=== PATIENT | female | born 1960 | race Caucasian/White ===

== ENCOUNTER 2017-02-04 19:52 | Emergency (ER) | payer MEDICAID ==
[2017-02-04 22:00] VITALS: BP 151/95
--- NOTE | 2017-02-06 09:51 | ER ---
DATE SEEN: 02/04/2017 TIME SEEN: The patient was seen at 2044. CHIEF COMPLAINT: Right chest pain. 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 On the bus, there was a large step between the last step of the bus and the ground. There was a hydraulic step that is usually in place, but it was not working. Consequently, she went from the bottom step to the ground. She knew she could manage on her own, but there were several others, who were very inebriated, and they were trying to help and they "were not_ any help", and she fell to the ground and struck her right chest. No neck injury. Has mild shortness of breath and pain with end inspiration. Mild right elbow discomfort. The pain is 10/10 in the chest. She is not taking any pain medicine. PAST MEDICAL HISTORY: Negative, except for allergic to Naproxen and metals. MEDICATIONS: She uses Valium occasionally, acetaminophen for arthritis, and hydrocodone 5/325 mg. ALLERGIES: Naproxen and metals. SERIOUS OTHER ILLNESSES: Negative. PHYSICAL EXAMINATION: VITAL SIGNS: Blood pressure 119/72, heart rate 71 and regular, respirations 14, oxygen saturation 97% on room air, temperature 36.5 degrees centigrade. GENERAL: Pleasant. markedly overweight woman with moderate distress in right chest. HEENT: PERRLA intact. Pharynx without abnormality. NECK: Without tenderness, bruits, cervical adenopathy, or thyromegaly. LUNGS: Clear to auscultation without rales, rhonchi, or wheezes. Chest wall, right chest ribs 8 through 11 mildly tender midclavicular line and lateral to the anterior axillary line. No crepitus or stepoff noted. No rales noted. HEART: S1, S2. No murmur. ABDOMEN: Soft. No guarding. No abdominal discomfort. No hepatosplenomegaly. Bowel sounds normal. No spinous process tenderness, thoracic or lumbar spine. DIAGNOSTIC STUDIES: X-ray does not reveal fracture of the ribs on rib detail. Chest x-ray is negative. No evidence for pneumothorax. ASSESSMENT: Chest wall contusion with right 6 through 10 costochondritis and subchondral joint pain. PLAN: Vicodin. The patient has Vicodin that she has at home for previous hip and knee surgeries. She is planning to have a carpal tunnel surgery in 3 days. Use incentive spirometer at least q.i.d. and as preferred. Follow up with doctor in a week. /[id number] STELLA/SERGIO
--- NOTE | 2017-02-06 11:10 | CR ---
INDICATION: Fall, right rib and chest pain. RIGHT RIBS WITH CHEST: CHEST: PA view of the chest 02/04/2017 was compared with 12/26/2015 and 2011, again revealing the heart to be normal in size and shape. The mediastinum was essentially unremarkable. Lateral pleural thickening on the right is again noted and only very minimally on the left, most likely on the basis of pleural fibrosis, having been present previously. An active infiltrate, effusion, contusion, or pneumothorax was not identified. Minimal dextroconcave scoliosis of the mid thoracic spine is noted. IMPRESSION: No acute process. RIGHT RIBS: Six views of the right ribs were obtained and revealed a marker overlying the lower right ribs. No displaced fracture site was identified. There is a calcific or bony density noted overlying those ribs, which may represent calcification in the cartilaginous portion of the ribcage. IMPRESSION: No displaced fracture site identified. Report was called to Sheela Elliott P.A.-C, at 0930 hours, 02/06/2017. SHERI
== END 2017-02-04 22:04 | disposition home or self-care (01) ==
LOC: FB.ED 19:52
DX: S20.211A Contusion of right front wall of thorax, initial encounter (principal); M94.0 Chondrocostal junction syndrome [Tietze]; Z88.8 Allergy status to other drugs, medicaments and biological substances; W19.XXXA Unspecified fall, initial encounter
CPT/HCPCS: 71101-RT; 99283

== ENCOUNTER 2018-05-13 11:57 | Emergency (ER) | payer MEDICAID ==
[2018-05-13] MEDS ORDERED: Albuterol/Ipratropium 3.0-0.5 MG/3 ML Neb Soln NEB ONE ×2 (12:00→14:20)
[2018-05-13] MEDS ORDERED: Albuterol/Ipratropium 3.0-0.5 MG/3 ML Neb Soln ONE ×2 (12:18→14:20)
[2018-05-13] MEDS ORDERED: predniSONE 20 MG Tab PO ONE (13:11)
[2018-05-13 15:02] VITALS: BP 157/69
--- NOTE | 2018-05-14 03:09 | EDM.PDOC ---
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: 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 (see below) Other Treatments CALCULATOR OPERATOR: inhaler Midsternal chest region Pain Score (Numeric/FACES): 5 - Related Data Allergies Allergy/AdvReac Type Severity Reaction Status Date / Time celecoxib [From Celebrex] Allergy Bronchospas Verified 05/13/18 12:05 ms cyclobenzaprine Allergy Rash Verified 05/13/18 12:05 [From Flexeril] fluticasone [From Flonase] Allergy Nose Bleeds Verified 05/13/18 12:05 naproxen Allergy Difficulty Verified 02/04/17 21:11 Breathing metals Allergy Rash Uncoded 02/04/17 21:11 Home Meds: Home Meds Acetaminophen [Tylenol Arthritis] 650 mg PO TID PRN 02/04/17 [History] Hydrocodone/Acetaminophen [Hydrocodon-Acetaminophen 5-325] 1 tab PO DAILY PRN [History] oxyCODONE HCl/Acetaminophen [Oxycodone-Acetaminophen 5-325] 1 each PO Q4H PRN # 16 tablet 02/05/17 [Rx] Albuterol [Ventolin HFA] 2 puff Q4H PRN 05/13/18 [History] Albuterol/Ipratropium [DuoNeb 3.0-0.5 MG/3 ML] 3 ml .XX ASDIRECTED PRN #1 box [Rx] Amoxicillin/Potassium Clav [Augmentin 875-125 Tablet] 1 each PO BID #20 tablet 05/13/18 [Rx] Ascorbic Acid [Vitamin C] 1,000 mg PO DAILY 05/13/18 [History] Cetirizine [ZyrTEC] 10 mg PO BEDTIME 05/13/18 [History] Cholecalciferol (Vitamin D3) [Vitamin D3] 1,000 units PO DAILY 05/13/18 [History ] predniSONE [Prednisone] 40 mg PO DAILY #5 tablet 05/13/18 [Rx] Past Medical History HEENT History: Reports: Impaired Vision Respiratory History: Reports: Asthma Gastrointestinal History: Reports: PUD Other Gastrointestinal History: duodenal ulcer 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: hysterectomy Musculoskeletal History: Reports: Arthritis, Back Pain, Chronic, Fracture, Osteoarthritis, Other (See Below) Other Musculoskeletal History: L wrist fx Endocrine/Metabolic History: Reports: Obesity/BMI 30+ - Infectious Disease History Infectious Disease History: Reports: Chicken Pox, Measles, Mumps - Past Surgical History GI Surgical History: Reports: Appendectomy, Colonoscopy, EGD Other GI Surgeries/Procedures: hemorroidectomy Neurological Surgical History: Reports: Lumbar Spine Musculoskeletal Surgical History: Reports: Arthroscopic Procedure, Carpal Tunnel , Hip Replacement, Knee Replacement, Shoulder Surgery, Other (See Below) Other Musculoskeletal Surgeries/Procedures:: R shoulder surg x 2, bilat knee surgery, bilat carpal tunnel surg, R hip surgery, L wrist scope Social & Family History - Family History Family Medical History: Noncontributory - Tobacco Use Smoking Status *Q: Current Every Day Smoker Years of Tobacco use: 40 Packs/Tins Daily: 0.5 - Caffeine Use Caffeine Use: Reports: Coffee, Soda - Recreational Drug Use Recreational Drug Use: No ED ROS GENERAL - Review of Systems Review Of Systems: See Below Constitutional: Reports: No Symptoms HEENT: Reports: No Symptoms Respiratory: Reports: Shortness of Breath, Cough Cardiovascular: Reports: No Symptoms Endocrine: Reports: No Symptoms GI/Abdominal: Reports: No Symptoms : Reports: No Symptoms Musculoskeletal: Reports: No Symptoms Skin: Reports: No Symptoms Neurological: Reports: No Symptoms Psychiatric: Reports: No Symptoms Hematologic/Lymphatic: Reports: No Symptoms Immunologic: Reports: No Symptoms ED EXAM, GENERAL - Physical Exam Exam: See Below Free Text/Narrative:: 0BESE WOMAN WHO DOES NOT APPEAR TO BE IN MUCH DISTRESS INSPITE OF THE SOB SX'S SHE STATES SHE IS HAVING NO RETRACTIONS NO S DYSPNEA Exam Limited By: No Limitations General Appearance: Alert, Mild Distress Eye Exam: Bilateral Eye: Normal Inspection Ears: Normal External Exam, Normal Canal, Hearing Grossly Normal, Normal TMs Nose: Normal Inspection, Normal Mucosa Throat/Mouth: Normal Inspection, Normal Lips, Normal Teeth, Normal Gums, Normal Oropharynx, Normal Voice, No Airway Compromise Head: Atraumatic Neck: Normal Inspection Respiratory/Chest: No Respiratory Distress, Lungs Clear, Normal Breath Sounds, No Accessory Muscle Use, Chest Non-Tender, Other (SLIGHT NOTED INCREASED BREATH SOUND BUT INTIALLY I HEARD NO WHEEZESBUT HTE NURSE BONNIE RN NOTED WHEEZES BUT SHE WOULD HAVE INTERMITTENLY VARIABLE PRESENT WHEEZES, THE WHEEZES WOULD RELENT AFTER EACH DUO NEB) Cardiovascular: Normal Peripheral Pulses Peripheral Pulses: 1+: Radial (L), Radial (R) GI/Abdominal: Normal Bowel Sounds, Soft, Non-Tender, No Organomegaly, No Distention, No Abnormal Bruit Back Exam: Normal Inspection Extremities: Normal Inspection, No Pedal Edema Neurological: Alert, Oriented, CN II-XII Intact, Normal Cognition, Normal Gait, Normal Reflexes, No Motor/Sensory Deficits Psychiatric: Normal Affect Skin Exam: Warm, Dry, Intact, Normal Color Course - Vital Signs Last Recorded V/S: Last Vital Signs Temp 36.7 C 05/13/18 13:11 Pulse 72 05/13/18 15:01 Resp 20 05/13/18 15:01 BP 157/69 H 05/13/18 15:01 Pulse Ox 97 05/13/18 15:01 - Orders/Labs/Meds Orders: Active Orders 24 hr Category Date Time Status RT Aerosol Therapy [RC] ASDIRECTED Care 05/13/18 12:30 Active CXR [Chest 2V] [CR] Stat Exams 05/13/18 12:27 Taken Meds: Medications Discontinued Medications Generic Name Dose Route Start Last Admin Trade Name Ovidio PRN Reason Stop Dose Admin Albuterol/Ipratropium Confirm 05/13/18 12:18 05/13/18 12:23 Duoneb 3.0-0.5 Mg/3 Ml Administered 05/13/18 12:19 3 ml Dose Administration 3 ml .ROUTE .STK-MED ONE Albuterol/Ipratropium 3 ml 05/13/18 14:20 05/13/18 14:24 Duoneb 3.0-0.5 Mg/3 Ml NEB 05/13/18 14:21 3 ml ONETIME ONE Administration Albuterol/Ipratropium Confirm 05/13/18 14:20 05/13/18 14:24 Duoneb 3.0-0.5 Mg/3 Ml Administered 05/13/18 14:21 Not Given Dose 3 ml .ROUTE .STK-MED ONE Prednisone 40 mg 05/13/18 13:11 05/13/18 13:17 Prednisone PO 05/13/18 13:12 40 mg ONETIME ONE Administration Prednisone 40 mg 05/14/18 08:00 Prednisone PO WITHBREAKFAST KRISTY Departure - Departure Time of Disposition: 14:50 Disposition: Home, Self-Care 01 Clinical Impression: Acute asthmatic bronchitis Asthma Qualifiers: Asthma severity: mild Asthma persistence: intermittent Asthma complication type : with acute exacerbation Qualified Code(s): J45.21 - Mild intermittent asthma with (acute) exacerbation Obesity Qualifiers: Obesity type: with alveolar hypoventilation Obesity classification: adult class 3 (BMI >= 40) Serious obesity comorbidity presence: without serious comorbidity Body mass index: BMI 40.0-44.9 Qualified Code(s): E66.2 - Morbid ( severe) obesity with alveolar hypoventilation; Z68.41 - Body mass index (BMI) 40.0-44.9, adult Reactive airway disease with acute exacerbation Qualifiers: Asthma severity: mild Asthma persistence: intermittent Qualified Code(s): J45.21 - Mild intermittent asthma with (acute) exacerbation - Discharge Information *PRESCRIPTION DRUG MONITORING PROGRAM REVIEWED*: No *COPY OF PRESCRIPTION DRUG MONITORING REPORT IN PATIENT OMAR: No Prescriptions: Albuterol/Ipratropium [DuoNeb 3.0-0.5 MG/3 ML] 3 ml .XX ASDIRECTED PRN #1 box PRN Reason: Shortness Of Breath Amoxicillin/Potassium Clav [Augmentin 875-125 Tablet] 1 each PO BID #20 tablet predniSONE [Prednisone] 40 mg PO DAILY #5 tablet Instructions: Acute Bronchitis, Adult, [id number], Albuterol; Ipratropium solution for inhalation, Prednisone tablets Referrals: Hamilton Mohamud MD [Primary Care Provider] - Forms: ED Department Discharge Additional Instructions: AUGMENTIN 875 I TAB TWICE A DAY FOR 7 DAYS PREDNISONE 40 MG DUMONT FOR 5 DAYS DUO NEB EVERY 2-4 HOURS NEEDED FOR SHORTNESS OF BREATH AND ASTHMA SYMPTOMS DISCONTINUE SMOKING FOLLOW UP WITH YOUR MD 1 WEEK EARLIER IF WORSE - My Orders Last 24 Hours: My Active Orders 05/13/18 12:27 CXR [Chest 2V] [CR] Stat 05/13/18 12:30 RT Aerosol Therapy [RC] ASDIRECTED - Assessment/Plan Last 24 Hours: My Active Orders 05/13/18 12:27 CXR [Chest 2V] [CR] Stat 05/13/18 12:30 RT Aerosol Therapy [RC] ASDIRECTED
[2018-05-14] MEDS ORDERED: predniSONE 20 MG Tab PO SCH (08:00)
--- NOTE | 2018-05-14 13:18 | CR ---
INDICATION: Cough for 2-3 days, COPD exacerbation, smoker of 1/2 pack per day since age 12. CHEST: PA and lateral views of the chest were obtained 05/13/2018 and were compared with 02/04/2017 and 12/26/2015, again revealing evidence of exogenous obesity. Prominent AP diameter, slightly flattened diaphragm leaves, and mild hyperaeration all suggest the possibility of COPD and should be correlated clinically. A definite active infiltrate or effusion was not identified. Heart, mediastinum, and bony thorax were unremarkable. IMPRESSION: 1. No definite acute process. 2. Probable COPD. 3. Exogenous obesity. MTDD
== END 2018-05-13 15:10 | disposition home or self-care (01) ==
LOC: FB.ED 11:57
DX: J45.21 Mild intermittent asthma with (acute) exacerbation (principal); E66.2 Morbid (severe) obesity with alveolar hypoventilation; F17.210 Nicotine dependence, cigarettes, uncomplicated; Z68.41 Body mass index [BMI] 40.0-44.9, adult; Z88.1 Allergy status to other antibiotic agents; Z88.5 Allergy status to narcotic agent; Z79.899 Other long term (current) drug therapy
CPT/HCPCS: 71046; 94640; 99284; A9270; J7620

== ENCOUNTER 2023-03-07 22:17 | Emergency (ER) | payer BC, MEDICARE ==
[2023-03-07] MEDS ORDERED: HYDROmorphone 2 MG/ML SDV IVPUSH STA (22:37)
[2023-03-07 22:43] LABS: BASOPHILS ABSOLUTE AUTO 0.1 x10-3/uL (0.0-0.1); BASOPHILS PERCENT AUTO 0.8 % (0.2-1.5); EOSINOPHILS ABSOLUTE AUTO 0.3 x10-3/uL (0.0-0.8); EOSINOPHILS PERCENT AUTO 4.9 % (0.6-8.1); HEMATOCRIT 41.2 % (34.2-48.2); HEMOGLOBIN 14.1 g/dL (11.4-15.5); LYMPHOCYTES ABSOLUTE AUTO 2.4 x10-3/uL (1.0-4.4); MEAN CORPUSCULAR HEMOGLOBIN 31.7 pg (23.9-33.9); MEAN CORPUSCULAR HGB CONC 34.1 g/dL (31.9-34.8); MEAN CORPUSCULAR VOLUME 92.8 fL (76.7-100.5); MEAN PLATELET VOLUME 8.5 fL (7.1-12.4); MONOCYTES ABSOLUTE AUTO 0.7 x10-3/uL (0.3-1.0); MONOCYTES PERCENT AUTO 9.7 % (4.4-15.7); NEUTROPHILS ABSOLUTE AUTO 3.5 x10-3/uL (1.5-6.3); NEUTROPHILS PERCENT AUTO 50.6 % (30.8-76.2); PLATELET COUNT,PLT 243 x10(3)uL (151-488); RED BLOOD CELL COUNT 4.44 x10(6)uL (3.60-5.20); RED CELL DISTRIBUTION WIDTH 13.3 % (12.3-16.5)
[2023-03-07 22:47] LABS: BLOOD UREA NITROGEN,BUN 20 mg/dL (7-18); CALCIUM 8.9 mg/dL (8.6-10.2); CARBON DIOXIDE,CO2 26 mmol/L (21-32); CHLORIDE,CL 105 mmol/L (100-110); CREATININE 0.8 mg/dL (0.55-1.02); EST CRCL DRUG DOSING (CG) 60.31 mL/min; ESTIMATED GFR 83 mL/min (>60); GLUCOSE RANDOM 98 mg/dL (80-116); POTASSIUM,K 3.7 mmol/L (3.5-5.3); SODIUM,NA 142 mmol/L (135-145)
[2023-03-07 22:53] LABS: A/G RATIO 1.2; ALANINE AMINOTRANSFERASE,ALT 36 U/L (12-36); ALBUMIN 3.6 g/dL (3.2-4.6); ALKALINE PHOSPHATASE 74 IU/L (56-112); ASPARTATE AMNIOTRANSFERASE,AST 24 IU/L (5-25); BILIRUBIN TOTAL 0.3 mg/dL (0.1-1.3); PROTEIN TOTAL,TP 6.7 g/dL (6.0-8.0)
[2023-03-07] MEDS ORDERED: tiZANidine 4 MG Tab PO SCH (23:30)
[2023-03-08 01:18] VITALS: BP 168/92; PULSE 68
== END 2023-03-08 00:28 | disposition home or self-care (01) ==
LOC: FB.ED 22:17
DX: Q79.60 Ehlers-Danlos syndrome, unspecified (principal); M25.551 Pain in right hip; J45.909 Unspecified asthma, uncomplicated; E66.9 Obesity, unspecified; F17.210 Nicotine dependence, cigarettes, uncomplicated; Z68.38 Body mass index [BMI] 38.0-38.9, adult; Z88.1 Allergy status to other antibiotic agents; Z88.8 Allergy status to other drugs, medicaments and biological substances; Z88.6 Allergy status to analgesic agent; Z91.048 Other nonmedicinal substance allergy status; Z79.899 Other long term (current) drug therapy
CPT/HCPCS: 73502; 80053; 85025; 96374; 99283; A9270; J1170

== ENCOUNTER 2025-01-25 17:15 | Emergency (ER) | payer OTHER, MEDICARE ==
[2025-01-25] MEDS ORDERED: Lidocaine 1% 5 ML VIAL INFILT ONE (17:16)
[2025-01-25 18:00] VITALS: BP 147/82; PULSE 71
== END 2025-01-25 18:00 | disposition home or self-care (01) ==
LOC: FB.ED 17:15
DX: S60.452A Superficial foreign body of right middle finger, initial encounter (principal); J45.909 Unspecified asthma, uncomplicated; F17.210 Nicotine dependence, cigarettes, uncomplicated; Z91.048 Other nonmedicinal substance allergy status; Z88.8 Allergy status to other drugs, medicaments and biological substances; Z88.5 Allergy status to narcotic agent; Z79.51 Long term (current) use of inhaled steroids; Z79.899 Other long term (current) drug therapy; W45.8XXA Other foreign body or object entering through skin, initial encounter; Y93.89 Activity, other specified
CPT/HCPCS: 64450; 99282-25; J2003